=== PATIENT | female | born 1960 | race Caucasian/White ===

== ENCOUNTER 2018-08-26 10:55 | Outpatient (CLI) | payer BC ==
--- NOTE | 2018-08-26 12:46 | BD ---
DEXA BONE DENSITOMETRY: (Dual energy X-ray Absorptiometry) 08/26/2018 HISTORY: A 58-year-old postmenopausal white female for age-related osteoporosis screening examination. Height 70 in. Weight 150 lbs. Age of menopause 39 years. FINDINGS: The bone mineral density (BMD) is given in grams per square centimeter (g/cm2): LUMBAR SPINE: BMD(g/cm2) T-score Z-score L1: 1.048 0.5 1.7 L2: 1.050 0.2 1.4 L3: 1.220 1.2 2.5 L4: 1.262 1.8 3.2 Total: 1.151 0.9 2.2 HIP: Femoral neck: 0.712 -1.2 0.0 Total: 0.978 0.3 1.1 FRAX WHO Fracture Risk Assessment Tool: 10 Year Fracture Risk * Major osteoporotic fracture: 11% Hip fracture: 0.8% Reported Risk Factors: [place](), Neck BMD=0.717, BMI=21.5, and previous fracture. * Fracture probability is calculated for an untreated patient. Fracture probability may be lower if the patient has received treatment. IMPRESSION: 1) The mean bone mineral density of the lumbar spine is normal. Fracture risk is not increased. 2) The bone mineral density of the femoral neck is osteopenic. Fracture risk is increased. ISAMAR Hensley POS: JIGNA
--- NOTE | 2018-08-26 12:57 | RAD ---
FRONTAL AND LATERAL IMAGING OF THE CHEST: Date: 08-26-18 Comparison: 04-21-16 History: Abnormal weight loss. Tobacco user. FINDINGS: Mild increased linear interstitial density noted bilaterally, stable. No pneumothorax or pleural flui d is seen and there is no focal consolidation or alveolar edema. The lungs are hyperinflated, evidenc e of air trapping. IMPRESSION: Interstitial prominence and air trapping suggest COPD. No focal consolidation or alveolar edema. POS: ESTERH
== END 2018-08-26 10:56 | disposition home or self-care (01) ==
LOC: BICULT 10:55
PROVIDERS: ATTEND Family Medicine
DX: Z13.820 Encounter for screening for osteoporosis (principal); M85.859 Other specified disorders of bone density and structure, unspecified thigh; K76.0 Fatty (change of) liver, not elsewhere classified; R63.4 Abnormal weight loss; Z72.0 Tobacco use
CPT/HCPCS: 71046; 77063; 77067; 77080

== ENCOUNTER 2019-10-05 10:27 | Outpatient (CLI) | payer OTHER ==
--- NOTE | 2019-10-05 11:14 | MMO ---
Bilateral MAMMO Bilat Diag [facility]. CLINICAL HISTORY: Patient is 59 years old and is seen for diagnostic exam. The patient has no family history of breast cancer. The patient has no personal history of cancer. The patient has a history of bilateral Breast reduction in 1996. VIEWS: The views performed were: bilateral mediolateral with tomosynthesis; bilateral craniocaudal with tomosynthesis; bilateral mediolateral oblique with tomosynthesis; bilateral exaggerated craniocaudal; and right craniocaudal. FILMS COMPARED: The present examination has been compared to prior imaging studies performed at [facility] on 05/01/2016 and 08/26/2018. This study has been interpreted with the assistance of computer-aided detection. MAMMOGRAM FINDINGS: There are scattered fibroglandular densities. Finding 1: There are stable benign appearing calcifications seen in both breasts. Finding 2: There are stable post operative changes seen in both breasts. There are no suspicious masses, suspicious calcifications, or new areas of architectural distortion. IMPRESSION: THERE IS NO MAMMOGRAPHIC EVIDENCE OF MALIGNANCY. A ROUTINE FOLLOW-UP MAMMOGRAM IN 1 YEAR IS RECOMMENDED. THE RESULTS OF THIS EXAM WERE SENT TO THE PATIENT. ACR BI-RADS Category 2 - Benign finding MAMMOGRAPHY NOTE: 1. A negative mammogram report should not delay a biopsy if a dominant of clinically suspicious mass is present. 2. Approximately 10% to 15% of breast cancers are not detected by mammography. 3. Adenosis and dense breasts may obscure an underlying neoplasm. Reported by: YANET SANDERS MD Electonically Signed: [id number]
== END 2019-10-05 10:28 | disposition home or self-care (01) ==
LOC: BICMAMMO 10:27
PROVIDERS: ATTEND Family Medicine
DX: R92.2 Inconclusive mammogram (principal)
CPT/HCPCS: 77066; G0279

== ENCOUNTER 2020-03-11 18:42 | Day surgery (SDC) | payer BC, OTHER ==
[~2020-03-11 18:42] MED LIST: Dexamethasone 20 MG/5 ML VIAL ONE; EPHEDRINE 25 MG/5 ML SYRINGE ONE; Glycopyrrolate 0.2 MG/ML 5 ML SYRINGE ONE; Lidocaine 1% PF 5 ML VIAL ONE; Ondansetron PF 4 MG/2 ML Vial ONE; PHENYLEPHRINE-NS 100 MCG/ML 10 ML SYRINGE ONE; PROPOFOL 200 MG/20 ML VIAL ONE; Succinylcholine Chloride 20 MG/ML 10 ml SYRINGE FS ONE
--- NOTE | 2020-03-11 19:36 | RAD ---
Chest AP view INDICATION: Concern for foreign body within the esophagus COMPARISON: Chest radiograph dated March 03, 2020 at 11:27 AM FINDINGS: Lungs: The lungs are clear Cardiac silhouette: The cardiomediastinal silhouette appears within normal limits. Pulmonary vasculature: Normal Pleural spaces: No pleural effusion or pneumothorax is demonstrated. Upper abdomen: No abnormality seen. Osseous structures: No acute osseous abnormality. Additional findings: None. IMPRESSION: No acute cardiopulmonary abnormality.
[2020-03-11 19:55] LABS: #Eosinphils 0.1 thou/uL (0.0-0.7); #Lymphocytes 1.7 thou/uL (1.20-3.40); #Monocytes 0.4 thou/uL (0.11-0.59); #Neutrophils 5.9 thou/uL (1.40-6.50); %Basophils 0.5 % (0.0-1.0); %Eosinophils 1.4 % (0.0-10.0); %Lymphocytes 20.3 % (21.0-51.0); %Monocytes 4.8 % (0.0-10.0); %Neutrophils 72.9 % (42.0-75.0); Hemoglobin 13.9 g/dL (12.0-16.0); Mean Corpuscular Hemoglobin 33.2 pg (27.0-31.0); Mean Platelet Volume 8.4 fL (7.4-10.4); Platelet Count 249 thou/uL (130-400); RBC Distribution Width 11.2 % (11.5-14.5); Red Blood Cell (RBC) Count 4.19 mill/uL (4.20-5.40); White Blood Cell (WBC) Count 8.1 thou/uL (4.8-10.8)
[2020-03-11] MEDS ORDERED: Lidocaine 2% Jelly 5 ML TUBE ONE (20:12)
[2020-03-11] MEDS ORDERED: Midazolam HCl 2 mg/2 ml Vial ONE (20:12)
[2020-03-11] MEDS ORDERED: Fentanyl 100 MCG/2 ML VIAL ONE (20:12)
[2020-03-11 20:18] LABS: ALT (SGPT) 35 U/L (8-55); AST (SGOT) 24 U/L (5-34); Albumin 4.4 g/dL (3.5-5.0); Alkaline Phosphatase 138 U/L (40-110); Anion Gap 16 mmol/L (10-20); BUN (Urea Nitrogen) 20 mg/dL (9.8-20.1); Bilirubin, Total 0.6 mg/dL (0.2-1.2); Calc. Creatinine Clearance 0 mL/min (70-130); Calcium 9.6 mg/dL (7.8-10.44); Carbon Dioxide 26 mmol/L (22-29); Chloride 101 mmol/L (98-107); Estimated GFR-MDRD 57; Glucose 77 mg/dL (70-105); Potassium 4.6 mmol/L (3.5-5.1); Protein, Total 7.4 g/dL (6.0-8.3); Sodium 138 mmol/L (136-145)
--- NOTE | 2020-03-11 21:41 | CON ---
DATE OF CONSULTATION: 03/11/2020 CHIEF COMPLAINT: Food stuck in my esophagus. HISTORY OF PRESENT ILLNESS: Ms. Sharpe ate a piece of steak about 48 hours ago, which got stuck in her esophagus. She has been throwing up anything she eats or drinks since then. She has been unable to tolerate her saliva and has spit that out into a bag. She has had food impaction in the past around 4 years ago and had to have endoscopy to relieve that, but has not had any followup scope since then. She does not get acid reflux typically. She has had no weight loss associated with this. No other nausea, vomiting, abdominal pain, diarrhea, constipation, or blood in the stool. She had colonoscopy by Dr. Monet, maybe around 2 years ago. Her brother had colon cancer at age 55. Her mother had colon cancer at age 79. She does take naproxen around once per week for back pain. PAST MEDICAL HISTORY: Hypertension, history of opioid addiction, hypothyroidism, ADHD, and esophageal stricture or at least food impaction. PAST SURGICAL HISTORY: , hysterectomy, breast surgery, and endoscopy. She has had multiple laparoscopies for endometriosis in the past. FAMILY HISTORY: Brother with colon cancer. Mother with colon cancer. No other hereditary non polyposis colon cancer associated cancers that she is aware of. SOCIAL HISTORY: She quit smoking 3 years ago. She drinks 3 to 4 beers once per week. No history of IV drug use. She has prior opioid addiction. ALLERGIES: NO KNOWN DRUG ALLERGIES. MEDICATIONS: Prior to admission; 1. Levothyroxine. 2. Adderall. 3. Lisinopril. 4. Suboxone. 5. Naproxen. REVIEW OF SYSTEMS: Negative x10 systems reviewed except as stated in the history of present illness. PHYSICAL EXAMINATION: VITAL SIGNS: Pulse 81, blood pressure 138/89, and temperature 98.5. GENERAL: She is in no acute distress. Alert and oriented x3. EYES: Have no scleral icterus. Oropharynx is clear without lesions. No cervical or supraclavicular lymphadenopathy. LUNGS: Clear to auscultation bilaterally. HEART: Regular rate and rhythm without murmur. ABDOMEN: Soft, nontender, and nondistended. Bowel sounds are present. EXTREMITIES: No lower extremity edema. Cranial nerves are grossly intact. IMPRESSION: 1. Esophageal food bolus impaction. This is recurrent. Her last episode was 4 years ago. 2. Family history of colon cancer in 2 first-degree relatives over 2 generations. She reports her last colonoscopy 2 years ago was negative by Dr. Monet. RECOMMENDATIONS: 1. Upper endoscopy urgently to relieve the esophageal foreign body. 2. She should start a proton-pump inhibitor daily. 3. Followup endoscopy will likely be indicated in 2 to 4 weeks to perform esophageal dilation depending on findings with endoscopy today. Job ID: [id number]
[2020-03-11] MEDS ORDERED: PHENYLEPHRINE-NS 100 MCG/ML 10 ML SYRINGE ONE ×2 (21:52→21:53)
[2020-03-11] MEDS ORDERED: Phenylephrine 10 MG/ML VIAL ONE (21:52)
--- NOTE | 2020-03-12 01:34 | OP ---
DATE OF PROCEDURE: 03/11/2020 PROCEDURE PERFORMED: Esophagogastroduodenoscopy with removal of foreign body and balloon dilation of the esophagus. PREOPERATIVE DIAGNOSIS: Esophageal food impaction. DESCRIPTION OF PROCEDURE: Informed consent was obtained from the patient. She was sedated with general anesthesia. She was given 2.5 L of fluid during the procedure. She has been n.p.o. for 48 hours. The esophagus had a large amount of food retained in the esophagus. Esophagus was dilated and large amounts of potato and vegetable matter and meat was removed with a Guadalupe Net and with a snare and with a rat-tooth forceps and biopsy forceps. Finally, there was a large chunk of steak that was dislodged from the distal-most esophagus with snare. This was the primary culprit causing the food impaction. The rest of the food was also cleared with multiple Guadalupe Nets. The lower esophageal sphincter was tight and the endoscope could not pass through easily. There was a slight mucosal stricture in this area. The lower esophageal sphincter was dilated to 12 mm with a balloon. The endoscope could then be passed through the lower esophageal sphincter, however, there was no mucosal tear. I think this was more likely achalasia. The esophagus was dilated and stretched out above that. The stomach was normal including retroflexed views. The pylorus and first and second portions of the duodenum were normal. IMPRESSION: 1. Esophageal foreign body with a large piece of steak removed with a snare and a large amount of meat and potatoes and vegetable matter removed with a net and other devices for over 2-hour period. 2. Distal esophageal stricture dilated to 12 mm with a balloon dilator. There was no actual mucosal tear with that. These findings with the tight lower esophageal sphincter and dilated tortuous esophagus above that are most consistent with achalasia. 3. Otherwise, normal EGD. RECOMMENDATIONS: 1. Full liquid diet. 2. Follow up in the office to schedule barium esophagogram, esophageal manometry, and outpatient management. Job ID: [id number]
== END 2020-03-11 22:53 | disposition home or self-care (01) ==
LOC: ERS 18:42 → SDC 20:38
PROVIDERS: ATTEND Internal Medicine Gastroenterology
PROC: 0D758ZZ Dilation of Esophagus, Via Natural or Artificial Opening Endoscopic (ICD-10-PCS; principal; 2020-03-11)
PROC: 0DC58ZZ Extirpation of Matter from Esophagus, Via Natural or Artificial Opening Endoscopic (ICD-10-PCS; principal; 2020-03-11)
DX: T18.128A Food in esophagus causing other injury, initial encounter (principal); K22.2 Esophageal obstruction; I10 Essential (primary) hypertension; E03.9 Hypothyroidism, unspecified; F90.9 Attention-deficit hyperactivity disorder, unspecified type; Z79.899 Other long term (current) drug therapy; Z87.891 Personal history of nicotine dependence
CPT/HCPCS: 36415; 71045; 80053; 85025; 93005; J1100; J2001; J2250; J2370; J2405; J2704; J3010

== ENCOUNTER 2020-03-19 05:45 | Outpatient (CLI) | payer BC, OTHER ==
[2020-03-20 13:12] LABS: SARS-CoV-2 MS2 Positive; SARS-CoV-2 N Gene Negative; SARS-CoV-2 S Gene Negative; SARS-CoV-2 orf1ab Negative
== END 2020-03-19 05:46 | disposition home or self-care (01) ==
LOC: LABBT 05:45
PROVIDERS: ATTEND Internal Medicine Gastroenterology
DX: Z01.812 Encounter for preprocedural laboratory examination (principal); Z11.59 Encounter for screening for other viral diseases; R13.10 Dysphagia, unspecified
CPT/HCPCS: 87635; U0003

== ENCOUNTER 2020-03-22 07:37 | Outpatient (CLI) | payer BC ==
--- NOTE | 2020-03-22 12:45 | RAD ---
BIPHASIC ESOPHAGRAM: DATE: 03/22/2020 HISTORY: Dysphagia. FINDINGS: Swallowing was grossly normal. There was unobstructed flow of contrast through the esophagus and into the stomach. Tertiary contractions seen. No obstructing mass, stricture, or diverticulum identified. IMPRESSION: Presbyesophagus. POS: IAM
== END 2020-03-22 07:38 | disposition home or self-care (01) ==
LOC: RAD 07:37
PROVIDERS: ATTEND Internal Medicine Gastroenterology
DX: R13.10 Dysphagia, unspecified (principal); K22.8 Other specified diseases of esophagus
CPT/HCPCS: 74220

== ENCOUNTER 2021-10-31 15:38 | Outpatient (CLI) | payer OTHER | END 2021-10-31 15:39 | disposition home or self-care (01) | LOC: BICMAMMO 15:38 | PROVIDERS: ATTEND Physician Assistant | DX: Z12.31 Encounter for screening mammogram for malignant neoplasm of breast (principal); Z98.890 Other specified postprocedural states | CPT/HCPCS: 77063; 77067 ==

== ENCOUNTER 2022-03-12 12:11 | Outpatient (CLI) | payer OTHER | END 2022-03-12 12:12 | disposition home or self-care (01) | LOC: LABBT 12:11 | PROVIDERS: ATTEND Internal Medicine Gastroenterology | DX: Z20.822 Contact with and (suspected) exposure to COVID-19 (principal) | CPT/HCPCS: 87811 ==

== ENCOUNTER 2022-03-12 13:37 | Outpatient (CLI) | payer OTHER | END 2022-03-12 13:38 | disposition home or self-care (01) | LOC: RAD 13:37 | PROVIDERS: ATTEND Internal Medicine Gastroenterology | DX: R13.10 Dysphagia, unspecified (principal); K21.9 Gastro-esophageal reflux disease without esophagitis; R93.3 Abnormal findings on diagnostic imaging of other parts of digestive tract | CPT/HCPCS: 74220 ==

== ENCOUNTER 2022-07-21 14:26 | Outpatient (CLI) | payer OTHER | END 2022-07-21 14:27 | disposition home or self-care (01) | LOC: TBSIIMAG 14:26 | PROVIDERS: ATTEND Physician Assistant | DX: M47.26 Other spondylosis with radiculopathy, lumbar region (principal); M51.16 Intervertebral disc disorders with radiculopathy, lumbar region; M51.17 Intervertebral disc disorders with radiculopathy, lumbosacral region; R93.7 Abnormal findings on diagnostic imaging of other parts of musculoskeletal system | CPT/HCPCS: 72148 ==

== ENCOUNTER 2023-07-02 12:22 | Day surgery (SDC) | payer OTHER ==
[2023-07-02 13:32] LABS: #Eosinphils 0.1 thou/uL (0.0-0.7); #Monocytes 0.4 thou/uL (0.11-0.59); #Neutrophils 4.9 thou/uL (1.40-6.50); %Basophils 0.1 % (0.0-1.0); %Eosinophils 1.1 % (0.0-10.0); %Lymphocytes 24.3 % (21.0-51.0); %Monocytes 5.9 % (0.0-10.0); %Neutrophils 68.3 % (42.0-75.0); Hematocrit 41.6 % (36.0-47.0); Mean Corpuscular HGB CONC 33.7 g/dL (32.0-36.0); Mean Corpuscular Hemoglobin 32.6 pg (27.0-31.0); Mean Platelet Volume 10.9 fL (7.4-10.4); Platelet Count 257 10x3/uL (130-400); RBC Distribution Width 12.1 % (11.5-14.5); Red Blood Cell (RBC) Count 4.29 mill/uL (4.20-5.40); White Blood Cell (WBC) Count 7.2 10x3/uL (4.8-10.8)
[2023-07-02 13:40] LABS: INR-International Normal Ratio 1.2; Prothrombin Time 15.2 sec (12.0-14.7)
[2023-07-02 13:41] LABS: PTT 28.4 sec (22.9-36.1)
[2023-07-02 14:01] LABS: ALT (SGPT) 37 U/L (8-55); AST (SGOT) 33 U/L (5-34); Albumin 4.9 g/dL (3.4-4.8); Alkaline Phosphatase 141 U/L (40-110); Anion Gap 18 mmol/L (10-20); BUN (Urea Nitrogen) 14 mg/dL (9.8-20.1); Bilirubin, Total 0.6 mg/dL (0.2-1.2); Calc. Creatinine Clearance 0 mL/min (70-130); Calcium 9.9 mg/dL (7.8-10.44); Carbon Dioxide 23 mmol/L (23-31); Chloride 104 mmol/L (98-107); Estimated GFR 74; Globulin 2.6 g/dL (2.4-3.5); Glucose 96 mg/dL (80-115); Potassium 4.2 mmol/L (3.5-5.1); Protein, Total 7.5 g/dL (5.8-8.1); Sodium 141 mmol/L (136-145)
[2023-07-02 14:02] LABS: Troponin I Less than 0.010 ng/mL (< 0.028)
[2023-07-02] MEDS ORDERED: Glucagon 1 MG/ML KIT ONE (14:22)
[2023-07-02] MEDS ORDERED: Lidocaine 1% PF 5 ML VIAL ONE (16:04)
[2023-07-02] MEDS ORDERED: PROPOFOL 200 MG/20 ML VIAL ONE (16:04)
[2023-07-02] MEDS ORDERED: Ondansetron PF 4 MG/2 ML Vial ONE (16:04)
[2023-07-02] MEDS ORDERED: Succinylcholine 200 MG/10 ml SYRINGE FS ONE (16:04)
[2023-07-02] MEDS ORDERED: Promethazine HCl 25 MG/ML VIAL ONE (17:16)
== END 2023-07-02 18:18 | disposition home or self-care (01) ==
LOC: ERS 12:22 → SDC 15:23
PROVIDERS: ATTEND Psychiatry & Neurology Psychiatry
PROC: 0DC58ZZ Extirpation of Matter from Esophagus, Via Natural or Artificial Opening Endoscopic (ICD-10-PCS; principal; 2023-07-02)
DX: T18.128A Food in esophagus causing other injury, initial encounter (principal); K22.0 Achalasia of cardia; I48.91 Unspecified atrial fibrillation; I10 Essential (primary) hypertension; E03.9 Hypothyroidism, unspecified; F11.10 Opioid abuse, uncomplicated; Z98.890 Other specified postprocedural states; Z90.710 Acquired absence of both cervix and uterus; Z90.89 Acquired absence of other organs; Z79.01 Long term (current) use of anticoagulants; Z79.890 Hormone replacement therapy; Z79.899 Other long term (current) drug therapy
CPT/HCPCS: 36415; 36416; 71045; 80053; 83605; 84484; 85025; 85610; 85730; 86850; 86900; 86901; 93005; 96374; J1611; J2405; J2550; J2704

== ENCOUNTER 2024-03-11 13:29 | Outpatient (CLI) | payer OTHER | END 2024-03-11 13:30 | disposition home or self-care (01) | LOC: BICMAMMO 13:29 | PROVIDERS: ATTEND Physician Assistant | DX: Z12.31 Encounter for screening mammogram for malignant neoplasm of breast (principal); Z98.890 Other specified postprocedural states | CPT/HCPCS: 77063; 77067 ==